=== PATIENT | female | born 1975 | race Caucasian/White ===

== ENCOUNTER → 2021-08-05 10:42 | Outpatient (BNVA) | payer SELFPAY | PROVIDERS: Family Provider Nurse Practitioner Family; PCP Nurse Practitioner Family; Visit Provider Registered Nurse Neonatal Intensive Care | DX: N39.0 Urinary tract infection, site not specified (principal) | CPT/HCPCS: 81000 ==

== ENCOUNTER → 2021-09-22 14:16 | Outpatient (BNVA) | payer OTHER, SELFPAY | PROVIDERS: Family Provider Nurse Practitioner Family; PCP Nurse Practitioner Family; Visit Provider Obstetrics & Gynecology | DX: N95.9 Unspecified menopausal and perimenopausal disorder (principal) | CPT/HCPCS: 83036; 83525; 84443 ==

== ENCOUNTER 2023-08-29 07:55 | Outpatient (CLI) | payer OTHER, SELFPAY ==
--- NOTE | 2023-08-29 07:59 | CT_ITS ---
WS: [id number] CT ABDOMEN AND PELVIS NONCONTRAST HISTORY: DYSURIA, LEFT flank pain for 1 month. TECHNIQUE: Imaging performed through the abdomen and pelvis. Coronal and sagittal reformats are submi tted. All CT scans at [facility] use at least one of these dose optimization techniques: auto mated exposure control; mA and/or kV adjustment per patient size (includes targeted exams where dose is matched to clinical indication); or iterative reconstruction. DLP: 876.29 mGy.cm COMPARISON: 07/17/2006 Lower thorax: Lung bases are clear. Visualized heart is normal. No hiatal hernia. Liver: Very mildly enlarged liver and heterogeneity. No mass identified. Gallbladder: Prior cholecystectomy. Pancreas: Normal size and attenuation. Normal pancreatic duct. No pancreatitis or mass. Spleen: Normal. Adrenal glands: Normal. No mass. Right kidney: Normal size kidney. There is a large extrarenal pelvis. The ureter is normal size. No c alyceal dilatation. There is a tiny nonobstructing calcification in the lower pole. Left kidney: Normal size kidney with no hydronephrosis. Tiny calcification nonobstructing in the lowe r pole. Aorta: Mild atherosclerosis abdominal aorta with no aneurysm. No free fluid, intraperitoneal air or significant lymphadenopathy. GI tract: No obstruction. Nondistended stomach. Marked constipation with overlapping loops of GI trac t in the RIGHT abdomen. The appendix is identified in a slightly abnormal position. Appendix is in th e midline of the central abdomen, best seen on image 103 of series 3. No evidence for acute diverticu litis. There are a few scattered diverticula which are not inflamed. There is a linear focus of incre ased density measuring 13 x 3 mm in the LEFT small bowel of uncertain etiology. This does not appear to be round ligament to small tablet. Etiology is not certain. Abdominal wall: Negative. No hernia. Pelvis: No free fluid or adenopathy. Uterus is midline. Osseous structures: No acute findings. IMPRESSION: 1. Bilateral nonobstructing very small renal calcifications. 2. No appendicitis. The appendix is in a central abdominal position. 3. There are a few scattered diverticula in the distal colon but no acute diverticulitis. 4. Prior cholecystectomy. 5. There is a linear focus of increased density in the LEFT small bowel measuring 13 x 3 mm. This is probably ingested material. Source and etiology of this is not certain. Does not have the configurat ion of medicinal tablet. There is no adjacent inflammation to suggest this is causing a source of dis comfort.
== END 2023-08-29 07:56 | disposition home or self-care (01) ==
LOC: RAD 07:55
PROVIDERS: Family Provider Nurse Practitioner Family; PCP Nurse Practitioner Family; Visit Provider Electrodiagnostic Medicine
DX: R30.0 Dysuria (principal); N28.89 Other specified disorders of kidney and ureter; K57.30 Diverticulosis of large intestine without perforation or abscess without bleeding; Z90.49 Acquired absence of other specified parts of digestive tract; R93.3 Abnormal findings on diagnostic imaging of other parts of digestive tract
CPT/HCPCS: 74176

== ENCOUNTER → 2024-03-11 12:07 | Outpatient (BNVA) | payer OTHER, SELFPAY | PROVIDERS: Family Provider Nurse Practitioner Family; PCP Nurse Practitioner Family; Visit Provider Nurse Practitioner Women's Health | DX: N95.9 Unspecified menopausal and perimenopausal disorder (principal) | CPT/HCPCS: 82306 ==

== ENCOUNTER 2024-04-14 09:07 | Outpatient (CLI) | payer OTHER, SELFPAY ==
--- NOTE | 2024-04-14 10:00 | MM_ITS ---
WS: [id number] BILATERAL 3D TOMOSYNTHESIS DIGITAL SCREENING MAMMOGRAPHY WITH CAD CLINICAL INFORMATION: SCREENING HISTORY: Screening mammogram. No current complaints. History of breast reduction. COMPARISON: Baseline TECHNIQUE: Bilateral CC and MLO views. FINDINGS: The breasts are composed of heterogeneous fibroglandular density tissue, which can limit the detectio n of small underlying mass lesions. Dense spiculated lesion upper outer RIGHT breast with architectur al distortion may be due to prior breast reduction but indeterminate. Recommend further evaluation wi RIGHT breast diagnostic mammography and ultrasound A few tiny incidental punctate calcifications. Unremarkable LEFT breast MM/MM [facility] tomosynthesis [id number] IMPRESSION: DENSITY: The breasts are heterogeneously dense, which may obscure small masses. BI-RADS: 0 - Incomplete: Need additional imaging evaluation FOLLOW UP: Need Additional Imaging Recommend RIGHT breast diagnostic mammography and ultrasound in further evaluat ion.
== END 2024-04-14 09:08 | disposition home or self-care (01) ==
LOC: MOBLMAM 09:12
PROVIDERS: PCP Nurse Practitioner Family; Visit Provider Nurse Practitioner Family
DX: Z12.31 Encounter for screening mammogram for malignant neoplasm of breast (principal); R92.333 Mammographic heterogeneous density, bilateral breasts; N63.11 Unspecified lump in the right breast, upper outer quadrant
CPT/HCPCS: 77063; 77067

== ENCOUNTER → 2024-11-05 11:41 | Outpatient (BNVA) | payer OTHER, SELFPAY | PROVIDERS: PCP Nurse Practitioner Family; Visit Provider Nurse Practitioner Women's Health | DX: N95.9 Unspecified menopausal and perimenopausal disorder (principal); Z79.890 Hormone replacement therapy; Z86.39 Personal history of other endocrine, nutritional and metabolic disease | CPT/HCPCS: 84439; 84443; 84481 ==

== ENCOUNTER → 2025-03-18 16:21 | Outpatient (BNVA) | payer OTHER, SELFPAY | PROVIDERS: PCP Nurse Practitioner Family; Visit Provider Nurse Practitioner Women's Health | DX: Z01.419 Encounter for gynecological examination (general) (routine) without abnormal findings (principal) | CPT/HCPCS: 87624 ==